=== PATIENT | female | born 1945 | race Caucasian/White ===

== ENCOUNTER 2017-09-20 09:06 | Emergency (ER) | payer MEDICAID ==
[~2017-09-20] VITALS: Wt 72.8 kg
[~2017-09-20 09:06] MED LIST: ALEN70TA30 PO; AMLO5TAB4 PO; ASPI-664 PO; CALC500T PO; CETI10CA PO
[2017-09-20] MEDS ORDERED: ACETAMINOPHEN 325 MG TAB PO ONE (10:00)
--- NOTE | 2017-09-20 10:18 | RADRPT ---
PROCEDURE: XR Chest. CLINICAL INDICATION: Cough. TECHNIQUE: Single frontal view. COMPARISON: 11/27/2014. FINDINGS: The lungs are clear. The heart size is normal. There is calcification in the aorta consistent with atherosclerosis. There is no pleural effusion. There is left lateral pleural thickening, unchanged. There is no pneumothorax. IMPRESSION: 1. Atherosclerosis. 2. Left lateral pleural thickening, unchanged. 3. Clear lungs. 4. Otherwise unremarkable chest radiograph. RPTAT: QQ .Deniz Ames MD, MD Date Time Electronically viewed and signed by .Deniz Ames MD, MD on 09/20/2017 10:18 .R/
[2017-09-20] MEDS ORDERED: AZIT250T94 PO (11:02)
[2017-09-20] MEDS ORDERED: ACET500C5 PO (11:02)
[2017-09-20] MEDS ORDERED: BENZ100C70 PO (11:02)
[2017-09-20] MEDS ORDERED: CETI10CA PO (11:02)
--- NOTE | 2017-09-20 11:05 | ERD ---
ER Documentation Chief Complaint Chief Complaint COUGH, CONGESTION HPI 72 year old female with a history of hypertension, hyperlipidemia, presents with sore throat, congestion, cough or 3-4 days. The patient reports that she has had a low-grade fever at home, taking Tylenol. The cough is been dry, no hemoptysis, chest pain or shortness of breath. Patient does state that she has had back pain with a cough that is diffuse. ROS All systems reviewed and are negative except as per history of present illness. Medications Home Meds Active Scripts Acetaminophen* (Tylophen*) 500 Mg Capsule, 1 CAP PO Q6H Y for PAIN AND OR ELEVATED TEMP, #20 CAP Prov:IVONE FERRER PA-C 09/20/17 Cetirizine Hcl* (Zyrtec*) 10 Mg Capsule, 10 MG PO DAILY, #10 TAB.CHEW Prov:IVONE FERRER PA-C 09/20/17 Benzonatate* (Tessalon Perle*) 100 Mg Capsule, 100 MG PO Q8H Y for COUGH, #30 CAP Prov:IVONE FERRER PA-C 09/20/17 Azithromycin* (Zithromax*) 250 Mg Tablet, 250 MG PO .ZPACK DIRECTED, #6 TAB TAKE 500 MG (2 TABS) THE FIRST DAY THEN 250 MG (1 TAB) DAYS 2-5 Prov:IVONE FERRER PA-C 09/20/17 Reported Medications Alendronate Sodium* (Fosamax*) 70 Mg Tablet, 70 MG PO Q7D, TAB 11/27/14 Amlodipine Besylate* (Norvasc*) 5 Mg Tablet, 5 MG PO DAILY, TAB 11/27/14 Aspirin* (Aspirin* (EC)) 81 Mg Tablet.dr, 81 MG PO DAILY, TAB 08/16/14 Calcium Carbonate (Calcium 500) 1 Tab Tablet, 1 TAB PO DAILY, TAB 08/16/14 Cetirizine Hcl* (Zyrtec*) 10 Mg Capsule, 10 MG PO DAILY, TAB 08/16/14 Allergies Allergies: Coded Allergies: Penicillins (Verified Allergy, Severe, 11/27/14) PMhx/Soc Medical and Surgical Hx: pt denies Surgical Hx History of Surgery: Yes (CYSTECTOMY L BREAST) Anesthesia Reaction: No Hx Neurological Disorder: No Hx Respiratory Disorders: Yes (htn, high cholesterol) Hx Cardiac Disorders: Yes (htn) Hx Psychiatric Problems: No Hx Miscellaneous Medical Probl: Yes (DM) Hx Alcohol Use: No Hx Substance Use: No Hx Tobacco Use: No Smoking Status: Never smoker Physical Exam Vitals Vital Signs Date Time Temp Pulse Resp B/P Pulse Ox O2 Delivery O2 Flow Rate FiO2 09/20/17 09:08 99.5 87 18 130/73 97 Physical Exam General: Well-developed, well-nourished. The patient appears in no acute distress. HEENT: Head is normocephalic, atraumatic. No scleral icterus. Pupils are equal , round, and reactive. Oral mucous membranes are moist. No pharyngeal erythema. Neck: Supple. Nontender. Lungs: Clear to auscultation. Normal air movement. Heart: Regular rate and rhythm. S1 and S2 are normal. No murmurs, gallops, or rubs. Abdomen: Soft, nontender, nondistended. Bowel sounds are normoactive. Extremities: No clubbing or cyanosis. Normal pulses. Moving extremities x 4. No weakness. Neurologic: Alert and oriented 3. No focal deficits. Skin: Normal turgor. No rash or lesions. Results 24 hrs Current Medications Medications (Trade) Dose Ordered Sig/Roland Route PRN Reason Start Time Stop Time Status Last Admin Dose Admin Acetaminophen (Tylenol Tab) 650 mg ONCE ONCE PO 09/20/17 10:00 09/20/17 10:01 DC 09/20/17 10:26 Procedures/MDM ED COURSE: EKG: Reviewed by Dr. Ye Rate/Rhythm: Normal Sinus Rhythm, with a rate of 78 with incomplete right bundle branch block QRS, ST, T-waves: No changes consistent w/ acute ischemia Impression: No evidence of ischemia or arrhythmia DIAGNOSTIC IMAGING REPORT Patient: ANISA WILDE : 1945 Age: 72 Sex: F MR #: [id number] DOS: 09/20/17 0938 Ordering MD: IVONE FERRER PA-C Location: [facility] Room/Bed: PROCEDURE: XR Chest. CLINICAL INDICATION: Cough. TECHNIQUE: Single frontal view. COMPARISON: 11/27/2014. FINDINGS: The lungs are clear. The heart size is normal. There is calcification in the aorta consistent with atherosclerosis. There is no pleural effusion. There is left lateral pleural thickening, unchanged. There is no pneumothorax. IMPRESSION: 1. Atherosclerosis. 2. Left lateral pleural thickening, unchanged. 3. Clear lungs. 4. Otherwise unremarkable chest radiograph. RPTAT: QQ .Deniz Ames MD, Date Time Electronically viewed and signed by .Deniz Ames MD, MD on 09/20/2017 10:18 .R/ CC: IVONE FERRER PA-C MEDICAL DECISION MAKING: The patient is a 72-year-old female who comes in with an acute upper respiratory infection is his acute bronchitis. Chest x-ray is normal. Patient' s pain is most consistent with musculoskeletal pain is reproduced when she coughs or takes a deep breath in or out. I doubt acute coronary syndrome, dissection, pulmonary embolus. The patient has a differential diagnosis of a viral upper respiratory infection, bacterial upper respiratory infection, bronchitis, pneumonia, pharyngitis, laryngitis, epiglottitis, croup, pneumonia. Patient has a normal pulmonary examination, clear breath sounds, normal pulse oximetry, with no corrective measures needed at this time. Fluids, rest, antipyretics were encouraged. Patient's blood pressure was elevated (>120/80) but appears stable without evidence of hypertension emergency or urgency. The patient was counseled about the risks of hypertension and urged to pursue outpatient monitoring and therapy within a week with their primary care physician. The case was reviewed and discussed with Dr. Ye who agrees with the plan of care including labs, treatment, and advanced imaging as appropriate. Departure Diagnosis: Primary Impression: Upper respiratory infection Condition: Good Patient Instructions: Bronchitis, Antiobiotic Treatment (Adult) Referrals: LISA HUNTLEY (PCP) IVONE FERRER PA-C Sep 20, 2017 11:05
== END 2017-09-20 11:45 | disposition home or self-care (01) ==
LOC: FTE 09:06
DX: J06.9 Acute upper respiratory infection, unspecified (principal); I10 Essential (primary) hypertension; E11.9 Type 2 diabetes mellitus without complications; Z79.82 Long term (current) use of aspirin
CPT/HCPCS: 71010; Z7502; Z7610

== ENCOUNTER 2017-11-19 08:01 | Emergency (ER) | END 2017-11-19 08:59 | disposition home or self-care (01) ==

== ENCOUNTER 2017-11-24 11:30 | Emergency (ER) | END 2017-11-24 13:33 | disposition home or self-care (01) ==

== ENCOUNTER 2017-12-03 10:33 | Emergency (ER) | END 2017-12-03 13:51 | disposition home or self-care (01) ==

== ENCOUNTER 2017-12-05 17:45 | Inpatient (IN) | END 2017-12-09 18:45 | disposition home or self-care (01) | DRG 195 ==

== ENCOUNTER 2017-12-13 09:00 | Emergency (ER) | END 2017-12-13 13:29 | disposition home or self-care (01) ==

== ENCOUNTER 2017-12-20 09:26 | Emergency (ER) | END 2017-12-20 12:15 | disposition home or self-care (01) ==

== ENCOUNTER 2018-01-04 09:21 | Emergency (ER) | END 2018-01-04 13:41 | disposition home or self-care (01) ==

== ENCOUNTER 2018-01-22 09:18 | Emergency (ER) | END 2018-01-22 10:10 | disposition home or self-care (01) ==

== ENCOUNTER 2018-03-04 14:14 | Emergency (ER) | END 2018-03-04 17:20 | disposition home or self-care (01) ==

== ENCOUNTER 2018-05-19 08:52 | Emergency (ER) | END 2018-05-19 11:21 | disposition home or self-care (01) ==

== ENCOUNTER 2018-11-05 07:19 | Emergency (ER) | payer MEDICAID ==
[~2018-11-05] VITALS: Wt 80.0 kg
[~2018-11-05 07:19] MED LIST changes: +ACET500C5 PO; +ALBU18HF INH; +ALBU18HF INHALATION; +ALBU8.5H8 INH; -ALEN70TA30 PO; +ALEN70TA5 PO; +AMOX1TAB10 PO; +ASPI-1046 PO; -ASPI-664 PO; +AZIT250T PO; +BENZ-6 PO; +GUAI-637 PO; +NAPR-985 PO; +PRED20TA PO; +TRAM50TA2 PO
[2018-11-05] MEDS ORDERED: ACET500C5 PO (07:46)
[2018-11-05] MEDS ORDERED: BENZ-6 PO (07:46)
--- NOTE | 2018-11-05 07:53 | ERD ---
ER Documentation Chief Complaint Chief Complaint SORE THROAT HPI 73-year-old female patient with a past medical history of hypertension presents the ED complaining of sore throat and dry cough for the last few days. Reports that she has had tactile fevers at home. States that she has sick contacts, where she lives. Denies any chest pain, shortness of breath, nausea, vomiting, diarrhea, shortness of breath. ROS All systems reviewed and are negative except as per history of present illness. Medications Home Meds Active Scripts Acetaminophen* (Tylophen*) 500 Mg Capsule, 1 CAP PO Q6H PRN for PAIN AND OR ELEVATED TEMP, #20 CAP Prov:TARAH GUSMAN-C 11/05/18 Benzonatate* (Tessalon Perle*) 100 Mg Capsule, 100 MG PO Q8H PRN for COUGH, #20 CAP Prov:TARAH GUSMAN-C 11/05/18 Naproxen* (Naprosyn*) 500 Mg Tablet, 500 MG PO BID PRN for PAIN AND/OR INFLAM MATION, #30 TAB Prov:MELANI STAFFORD PA-C 05/19/18 Tramadol HCl (Tramadol HCl) 50 Mg Tablet, 50 MG PO Q4 PRN for PAIN, #20 TAB Prov:MELANI STAFFORD PA-C 05/19/18 Acetaminophen* (Tylophen*) 500 Mg Capsule, 1 CAP PO Q6H PRN for PAIN AND OR ELEVATED TEMP, #20 CAP Prov:LOU CARRERO MD 03/04/18 Benzonatate* (Tessalon Perle*) 100 Mg Capsule, 100 MG PO Q8H PRN for COUGH for 7 Days, CAP Prov:DAVID OLIVERC 01/22/18 Albuterol Sulfate* (Proair HFA*) 8.5 Gm Hfa.aer.ad, 2 PUFF INH Q4, #1 INHALER Prov:DAVID OLIVERC 01/22/18 Albuterol Sulfate* (Ventolin HFA*) 18 Gm Hfa.aer.ad, 2 PUFF INHALATION Q6H, #1 INHALER Prov:DAVID OLIVER-C 01/04/18 Benzonatate* (Tessalon Perle*) 100 Mg Capsule, 100 MG PO Q8H PRN for COUGH for 5 Days, CAP Prov:DAVID OLIVER PA-C 01/04/18 Azithromycin* (Zithromax*) 250 Mg Tablet, 250 MG PO .KARSTEN DIRECTED, #6 TAB TAKE 500 MG (2 TABS) THE FIRST DAY THEN 250 MG (1 TAB) DAYS 2-5 Prov:DAVID OLIVER PA-C 01/04/18 Albuterol Sulfate* (Proair HFA*) 8.5 Gm Hfa.aer.ad, 2 PUFF INH Q4, #1 INHALER Prov:LOU CARRERO MD 12/20/17 Benzonatate* (Tessalon Perle*) 100 Mg Capsule, 100 MG PO Q8H PRN for COUGH, #30 CAP Prov:TAISHA TIMMONS MD 12/13/17 Prednisone* (Prednisone*) 20 Mg Tab, 60 MG PO DAILY for 4 Days, TAB Prov:TAISHA TIMMONS MD 12/13/17 Guaifenesin* (Robitussin*) 100 Mg/5 Ml Syrup, 200 MG PO Q4H PRN for COUGH, #1 BOTTLE Prov:ARLYN LUNDY S. 12/09/17 Albuterol Sulfate* (Ventolin HFA*) 18 Gm Hfa.aer.ad, 2 PUFF INH Q4H PRN for SHORTNESS OF BREATH, #1 BOTTLE Prov:DALIA LUNDYP S. 12/09/17 Amoxicillin/Potassium Clav (Amox-Clav 875-125 mg Tablet) 875-125 mg Tab, 875 MG PO BID, #4 TAB Prov:DALIA LUNDYP S. 12/09/17 Reported Medications Alendronate Sodium* (Fosamax*) 70 Mg Tablet, 70 MG PO Q7D, TAB 11/27/14 Amlodipine Besylate* (Norvasc*) 5 Mg Tablet, 5 MG PO DAILY, TAB 11/27/14 Aspirin* (Aspirin* (EC)) 81 Mg Tablet.dr, 81 MG PO DAILY, TAB 08/16/14 Calcium Carbonate (Calcium 500) 1 Tab Tablet, 1 TAB PO DAILY, TAB 08/16/14 Cetirizine Hcl* (Zyrtec*) 10 Mg Capsule, 10 MG PO DAILY, TAB 08/16/14 Allergies Allergies: Coded Allergies: Penicillins (Verified Allergy, Severe, 01/22/18) PMhx/Soc History of Surgery: Yes (Cystectomy, Left breast cyst SX) Anesthesia Reaction: No Hx Neurological Disorder: No Hx Respiratory Disorders: Yes (Bronchitis, PNA) Hx Cardiac Disorders: Yes (HTN) Hx Psychiatric Problems: No Hx Miscellaneous Medical Probl: Yes Hx Alcohol Use: No Hx Substance Use: No Hx Tobacco Use: No Smoking Status: Never smoker FmHx Family History: No diabetes, No coronary disease Physical Exam Vitals Vital Signs Date Temp Pulse Resp B/P (MAP) Pulse Ox O2 O2 Flow FiO2 Time Delivery Rate 11/05/18 78 19 143/75 98 Room Air 09:40 (97) 11/05/18 98.1 74 18 146/74 99 07:22 (98) Physical Exam Const: [id number], well-nourished. In no acute distress. Head: Atraumatic, normocephalic Eyes: Normal Conjunctiva without injection. No purulent discharge. PERRL. EOMI ENT: Normal external ear. Ear canal without erythema. Tympanic membrane pearly fischer without effusion or bulging. Nasal canal clear with normal turbinates. Moist oropharynx without tonsillar exudates. Non-erythematous pharynx. Uvula midline. No drooling. No trismus. Neck: Full range of motion. No meningismus. No cervical lymphadenopathy. Resp: Clear to auscultation bilaterally. No wheezing, rhonchi, rales, or crackles. No accessory muscle use. No retractions. Cardio: Regular rate and rhythm. No murmurs, rubs or gallops. Abd: Soft, non tender, non distended. Normal bowel sounds. No palpable masses. No rebound tenderness. No guarding. Skin: No petechiae or rashes Back: No midline tenderness. No CVA tenderness. Ext: No cyanosis, or edema. Neur: Awake and alert. Psych: Normal Mood and Affect Procedures/MDM 73-year-old female patient with no significant past medical history presents to ED complaining of sore throat, cough. Patient is afebrile and nontoxic- appearing. Patient's blood pressure is 146/74. Blood Pressure Assessment: Patient's blood pressure was elevated (>120/80) but appears stable without evidence of hypertension emergency or urgency. The patient was counseled about the risks of hypertension and urged to pursue outpatient monitoring and therapy within a week with their primary care physician. Upon discharge, patient started to complain about neck pain, headache, therefore a CT of the brain, neck was ordered to further evaluate patient. Patient reports that she is concerned about a stroke. States that she has numbness and tingling on her neck and neck pain. She is neurovascularly intact. No pre- negative drift. Muscle strength 5 out of 5 bilaterally. Patient does not have any facial droop or sided weakness or numbness and tingling. No slurred speech. Patient speaking in full sentences. Low suspicion for TIA or stroke at this time. PROCEDURE: CT Brain without contrast. IMPRESSION: 1. Moderate generalized cerebral and cerebellar volume loss. 2. 3 x 1.4 cm retrocerebellar fluid collection likely arachnoid cyst. Tiny 7 mm anterior falx lipoma. 3. No evidence of intracranial hemorrhages or midline shift. IMPRESSION: 1. Negative for fracture, malalignment or other acute process. 2. Multilevel disc degeneration, facet arthropathy and uncovertebral spurring from C2-3 through C6-7. Mild central canal stenosis at C3-4, C4-5 and C6-7. Varying degrees of foraminal narrowing as detailed above. Low suspicion for intracranial bleed, subarachnoid hemorrhage, meningitis, TIA, stroke, carotid dissection, pseudomembranous cerebri, subdural hematoma, epidura l hematoma, or other emergent conditions. This patient presents to the ED with symptoms consistent with a viral pharyngitis and nonspecified headaches. Patient's physical exam include lungs which were clear to auscultation and a normal pulse oximetry. There is a low suspicion for pneumonia, pneumothorax, mononucleosis, pulmonary embolism, epiglottitis, otitis media, otitis externa, viral/strep pharyngitis, sinusitis, myocarditis, pericarditis, endocarditis, peritonsillar abscess, mastoiditis, retropharyngeal abscess, meningitis, sepsis, acute abdomen or other emergent conditions. Fluids, rest, and symptomatic treatment are recommended for the management of patient's symptoms. Diagnosis: Sore throat, Headache Discharge medications: Tessalon Perles, Tylenol Follow up with primary care physician in 1-2 days. Instructed patient to return to the ED sooner for any worsening symptoms. Patient's questions were answered. Patient is hemodynamically stable. Patient understood and agreed with discharge plan. Patient discharged stable. Disclaimer: Inadvertent spelling and grammatical errors are likely due to EHR/dictation software use and do not reflect on the overall quality of patient care. Also, please note that the electronic time recorded on this note does not necessarily reflect the actual time of the patient encounter. Departure Diagnosis: Primary Impression: Cough Additional Impression: Headache Headache type: unspecified Headache chronicity pattern: unspecified pattern Intractability: not intractable Qualified Codes: R51 - Headache Condition: Stable Patient Instructions: Pharyngitis, Viral, Uri, Viral, No Abx (Adult) Referrals: [facility] YOU HAVE RECEIVED A MEDICAL SCREENING EXAM AND THE RESULTS INDICATE THAT YOU DO NOT HAVE A CONDITION THAT REQUIRES URGENT TREATMENT IN THE EMERGENCY DEPARTMENT. FURTHER EVALUATION AND TREATMENT OF YOUR CONDITION CAN WAIT UNTIL YOU ARE SEEN IN YOUR DOCTORS OFFICE WITHIN THE NEXT 1-2 DAYS. IT IS YOUR RESPONSIBILITY TO MAKE AN APPOINTMENT FOR FOLOW-UP CARE. IF YOU HAVE A PRIMARY DOCTOR --you should call your primary doctor and schedule an appointment IF YOU DO NOT HAVE A PRIMARY DOCTOR YOU CAN CALL OUR PHYSICIAN REFERRAL HOTLINE AT IF YOU CAN NOT AFFORD TO SEE A PHYSICIAN YOU CAN CHOSE FROM THE FOLLOWING [facility] [address] [facility]. [facility] [address] [facility]. [facility] [address] [facility] [address] [facility] [facility] [address] [facility]. [facility]. [address] [facility]. [facility] YOU HAVE RECEIVED A MEDICAL SCREENING EXAM AND THE RESULTS INDICATE THAT YOU DO NOT HAVE A CONDITION THAT REQUIRES URGENT TREATMENT IN THE EMERGENCY DEPARTMENT. FURTHER EVALUATION AND TREATMENT OF YOUR CONDITION CAN WAIT UNTIL YOU ARE SEEN IN YOUR DOCTORS OFFICE WITHIN THE NEXT 1-2 DAYS. IT IS YOUR RESPONSIBILITY TO MAKE AN APPOINTMENT FOR FOLOW-UP CARE. IF YOU HAVE A PRIMARY DOCTOR --you should call your primary doctor and schedule and appointment IF YOU DO NOT HAVE A PRIMARY DOCTOR YOU CAN CALL OUR PHYSICIAN REFERRAL HOTLINE AT . IF YOU CAN NOT AFFORD TO SEE A PHYSICIAN YOU CAN CHOSE FROM THE FOLLOWING [facility]: [facility] [address] [place] [address] [facility] [address] [place] [address] [facility] [address] [place] [address] [facility]/SPECIALTIES Additional Instructions: Llame al doctor MAANA y cinda fredis SINDY PARA DENTRO DE 2-3 HERNANDEZ.Dgale a la secretaria que nosotros le instruimos hacer esta sindy.Avise o llame si orellana condicin se empeora antes de la sindy. Regresa aqui si peor o no mejor. TARAH GUSMAN PA-C Nov 05, 2018 07:53
[2018-11-05 09:40] VITALS: BP 143/75; PULSE 78; RESP 19
== END 2018-11-05 09:41 | disposition home or self-care (01) ==
LOC: FTE 07:19
DX: J02.9 Acute pharyngitis, unspecified (principal); I10 Essential (primary) hypertension; R51 Headache; Z79.82 Long term (current) use of aspirin
CPT/HCPCS: 70450; 72125

== ENCOUNTER 2018-12-24 08:45 | Emergency (ER) | payer MEDICAID ==
[~2018-12-24] VITALS: Wt 78.0 kg
[2018-12-24] MEDS ORDERED: ALBUTEROL 0.083% (NEB) 2.5 MG/3 ML AMP HHN STA (09:13)
[2018-12-24] MEDS ORDERED: IPRATROPIUM (NEB) 0.5 MG/2.5 ML AMP HHN ONE (09:30)
[2018-12-24] MEDS ORDERED: DEXAMETHASONE 10 MG/ML 1 ML INJ IM ONE (09:30)
[2018-12-24] MEDS ORDERED: AZIT250T PO (10:36)
[2018-12-24] MEDS ORDERED: PROM6.2515 PO (10:36)
[2018-12-24] MEDS ORDERED: BENZ-6 PO (10:36)
--- NOTE | 2018-12-24 10:49 | ERD ---
ER Documentation Chief Complaint Chief Complaint COUGH X 4 DAYS HPI 73-year-old female presenting with cough times 4 days. Patient describes it as productive. She has had tactile fevers at home. Denies any use of medications. Denies pleuritic chest pain. Medical history hypertension and hypercholesterolemia. Allergy to penicillin. Surgical history is mass on left breast. Social history denies ROS All systems reviewed and are negative except as per history of present illness. Medications Home Meds Active Scripts Benzonatate* (Tessalon Perle*) 100 Mg Capsule, 100 MG PO Q8H PRN for COUGH, #30 CAP Prov:MELANI STAFFORDC 12/24/18 Promethazine Hcl* (Promethazine Hcl* Syrup) 6.25 Mg/5 Ml Syrup, 6.25 MG PO Q6H PRN for COUGH, #100 ML Prov:MELANI STAFFORD PA-C 12/24/18 Azithromycin* (Zithromax*) 250 Mg Tablet, 250 MG PO .PauPACK DIRECTED, #6 TAB TAKE 500 MG (2 TABS) THE FIRST DAY THEN 250 MG (1 TAB) DAYS 2-5 Prov:MELANI STAFFORD PA-C 12/24/18 Acetaminophen* (Tylophen*) 500 Mg Capsule, 1 CAP PO Q6H PRN for PAIN AND OR ELEVATED TEMP, #20 CAP Prov:TARAH GUSMAN PA-C 11/05/18 Benzonatate* (Tessalon Perle*) 100 Mg Capsule, 100 MG PO Q8H PRN for COUGH, #20 CAP Prov:TARAH GUSMAN PA-C 11/05/18 Naproxen* (Naprosyn*) 500 Mg Tablet, 500 MG PO BID PRN for PAIN AND/OR INFLAMMATION, #30 TAB Prov:MELANI STAFFORD PA-C 05/19/18 Tramadol HCl (Tramadol HCl) 50 Mg Tablet, 50 MG PO Q4 PRN for PAIN, #20 TAB Prov:MELANI STAFFORDC 05/19/18 Acetaminophen* (Tylophen*) 500 Mg Capsule, 1 CAP PO Q6H PRN for PAIN AND OR ELEVATED TEMP, #20 CAP Prov:LOU CARRERO MD 03/04/18 Benzonatate* (Tessalon Perle*) 100 Mg Capsule, 100 MG PO Q8H PRN for COUGH for 7 Days, CAP Prov:PRODEJUAN YOUNGWillie Espino. PA-C 01/22/18 Albuterol Sulfate* (Proair HFA*) 8.5 Gm Hfa.aer.ad, 2 PUFF INH Q4, #1 INHALER Prov:PROUSETRAVISDAVID M. PA-C 01/22/18 Albuterol Sulfate* (Ventolin HFA*) 18 Gm Hfa.aer.ad, 2 PUFF INHALATION Q6H, #1 INHALER Prov:PRODEJUAN YOUNGH SrinivasThomas PA-C 01/04/18 Benzonatate* (Tessalon Perle*) 100 Mg Capsule, 100 MG PO Q8H PRN for COUGH for 5 Days, CAP Prov:BENITODAVID. PA-C 01/04/18 Azithromycin* (Zithromax*) 250 Mg Tablet, 250 MG PO .KARSTEN DIRECTED, #6 TAB TAKE 500 MG (2 TABS) THE FIRST DAY THEN 250 MG (1 TAB) DAYS 2-5 Prov:DAVID YOUNG PA-C 01/04/18 Albuterol Sulfate* (Proair HFA*) 8.5 Gm Hfa.aer.ad, 2 PUFF INH Q4, #1 INHALER Prov:LOU CARRERO MD 12/20/17 Benzonatate* (Tessalon Perle*) 100 Mg Capsule, 100 MG PO Q8H PRN for COUGH, #30 CAP Prov:TAISHA TIMMONS MD 12/13/17 Prednisone* (Prednisone*) 20 Mg Tab, 60 MG PO DAILY for 4 Days, TAB Prov:TAISHA TIMMONS MD 12/13/17 Guaifenesin* (Robitussin*) 100 Mg/5 Ml Syrup, 200 MG PO Q4H PRN for COUGH, #1 BOTTLE Prov:ARLYN LUNDY S. 12/09/17 Albuterol Sulfate* (Ventolin HFA*) 18 Gm Hfa.aer.ad, 2 PUFF INH Q4H PRN for SHORTNESS OF BREATH, #1 BOTTLE Prov:RAKINJAL VÁSQUEZARLYN S. 12/09/17 Amoxicillin/Potassium Clav (Amox-Clav 875-125 mg Tablet) 875-125 mg Tab, 875 MG PO BID, #4 TAB Prov:ARLYN LUNDY 12/09/17 Reported Medications Alendronate Sodium* (Fosamax*) 70 Mg Tablet, 70 MG PO Q7D, TAB 11/27/14 Amlodipine Besylate* (Norvasc*) 5 Mg Tablet, 5 MG PO DAILY, TAB 11/27/14 Aspirin* (Aspirin* (EC)) 81 Mg Tablet.dr, 81 MG PO DAILY, TAB 08/16/14 Calcium Carbonate (Calcium 500) 1 Tab Tablet, 1 TAB PO DAILY, TAB 08/16/14 Cetirizine Hcl* (Zyrtec*) 10 Mg Capsule, 10 MG PO DAILY, TAB 08/16/14 Allergies Allergies: Coded Allergies: Penicillins (Verified Allergy, Severe, 01/22/18) PMhx/Soc History of Surgery: Yes (Cystectomy, Left breast cyst SX) Anesthesia Reaction: No Hx Neurological Disorder: No Hx Respiratory Disorders: Yes (Bronchitis, PNA) Hx Cardiac Disorders: Yes (HTN) Hx Psychiatric Problems: No Hx Miscellaneous Medical Probl: Yes Hx Alcohol Use: No Hx Substance Use: No Hx Tobacco Use: No Smoking Status: Never smoker FmHx Family History: No diabetes, No coronary disease, No other Physical Exam Vitals Vital Signs Date Temp Pulse Resp B/P (MAP) Pulse Ox O2 O2 Flow FiO2 Time Delivery Rate 12/24/18 81 18 96 21 09:32 12/24/18 98.1 67 18 147/67 99 08:47 (93) Physical Exam GENERAL: The patient is well-appearing, well-nourished, in no acute distress HEENT: Atraumatic. Conjunctivae are pink. Pupils equal, round, and reactive to light. There is no scleral icterus. Tympanic membranes clear bilaterally. Oropharynx clear. NECK: C-spine is soft and supple. There is no meningismus. There is no cervical lymphadenopathy. CHEST: Clear to auscultation bilaterally. There are no rales, wheezes or rhonchi. HEART: Regular rate and rhythm. No murmurs, clicks, rubs or gallops. Results 24 hrs Current Medications Medications Dose Sig/Roland Start Time Status Last (Trade) Ordered Route PRN Stop Time Admin Dose Reason Admin Albuterol 5 mg ONCE STAT 12/24/18 DC 12/24/18 (Proventil HHN 09:13 09:30 0.083% (Neb)) 12/24/18 09:15 Ipratropium 0.5 mg ONCE ONCE 12/24/18 DC 12/24/18 [place] HHN 09:30 09:30 (Atrovent 12/24/18 09:31 0.02% (Neb)) 10 mg ONCE ONCE 12/24/18 DC 12/24/18 Dexamethasone IM 09:30 09:48 (Decadron) 12/24/18 09:31 Procedures/MDM DIAGNOSTIC IMAGING REPORT Patient: ANISA WILDE : 1945 Age: 73 Sex: F MR #: [id number] DOS: 12/24/18912 Ordering MD: LISA STAFFORD PA-C Location: [facility] Room/Bed: PROCEDURE: XR Chest. CLINICAL INDICATION: Cough TECHNIQUE: Single frontal view of the chest was obtained COMPARISON: 01/04/2018 FINDINGS: The heart is enlarged. The thoracic aorta is calcified. There are mild bibasilar linear atelectatic changes. There is no pleural effusion or pneumothorax. RPTAT: AA IMPRESSION: Mild cardiomegaly. Calcified aorta consistent with atherosclerotic disease. Mild bibasilar linear atelectatic changes. MDM: 73 yr old female complaining of cough. I have low suspicion for pneumonia. I have low suspicion for respiratory distress or hypoxia. Patient is discharged stricter precautions and told to follow-up with primary care within 1-2 days for close evaluation. Given the patient's age and productive cough history I will treat prophylactically with antibiotics. All questions answered at discharge Departure Diagnosis: Primary Impression: Cough Condition: Stable Patient Instructions: Cough, Chronic, Uncertain Cause, (Adult) Referrals: [facility] YOU HAVE RECEIVED A MEDICAL SCREENING EXAM AND THE RESULTS INDICATE THAT YOU DO NOT HAVE A CONDITION THAT REQUIRES URGENT TREATMENT IN THE EMERGENCY DEPARTMENT. FURTHER EVALUATION AND TREATMENT OF YOUR CONDITION CAN WAIT UNTIL YOU ARE SEEN IN YOUR DOCTORS OFFICE WITHIN THE NEXT 1-2 DAYS. IT IS YOUR RESPONSIBILITY TO MAKE AN APPOINTMENT FOR FOLOW-UP CARE. IF YOU HAVE A PRIMARY DOCTOR --you should call your primary doctor and schedule an appointment IF YOU DO NOT HAVE A PRIMARY DOCTOR YOU CAN CALL OUR PHYSICIAN REFERRAL HOTLINE AT IF YOU CAN NOT AFFORD TO SEE A PHYSICIAN YOU CAN CHOSE FROM THE FOLLOWING [facility] [address] [facility] [address] [facility] [address] [facility] [address] [facility] [address] [facility]. [facility]. [address] Additional Instructions: FOLLOW UP WITH YOUR PRIMARY CARE PHYSICIAN TOMORROW.Return to this facility if you are not improving as expected. MELANI STAFFORD PA-C Dec 24, 2018 10:49
[2018-12-24 11:03] VITALS: BP 136/84; PULSE 59; RESP 24
== END 2018-12-24 11:21 | disposition home or self-care (01) ==
LOC: FTE 08:45
DX: R05 Cough (principal); I10 Essential (primary) hypertension; F17.210 Nicotine dependence, cigarettes, uncomplicated; Z79.82 Long term (current) use of aspirin
CPT/HCPCS: 71045; 94664; 96372; J1100; Z7502; Z7610

== ENCOUNTER 2019-01-01 10:45 | Emergency (ER) | payer MEDICAID ==
[~2019-01-01] VITALS: Ht 152.4 cm; Wt 72.5 kg
[~2019-01-01 10:45] MED LIST changes: +PROM6.2515 PO
[2019-01-01 11:00] VITALS: BP 132/62; PULSE 64; RESP 20; Ht 152.4 cm; Wt 72.5 kg
[2019-01-01] MEDS ORDERED: ALBUTEROL 0.083% (NEB) 2.5 MG/3 ML AMP HHN STA (13:40)
[2019-01-01] MEDS ORDERED: DEXAMETHASONE 4 MG TAB PO ONE (14:00)
[2019-01-01] MEDS ORDERED: PRED20TA PO (14:04)
[2019-01-01] MEDS ORDERED: ALBU18HF INHALATION (14:04)
[2019-01-01] MEDS ORDERED: D-ME473S2 PO (14:06)
--- NOTE | 2019-01-01 14:08 | ERD ---
ER Documentation Chief Complaint Chief Complaint cough x 1 week, hx of bronchitis HPI 73-year-old female presents with cough for last week. She took Zithromax and promethazine but has persistent cough. She may have mild wheeze. She denies sustained chest pain, abdominal pain, vomiting, fevers. She denies significant productive mucus. She is requesting a breathing treatment. ROS All systems reviewed and are negative except as per history of present illness. Medications Home Meds Active Scripts Dextromethorphan Hb-Promethazine Hcl* (Promethazine DM* Syrup) 473 Ml Syrup, 5 ML PO Q6 PRN for COUGH for 5 Days, ML Prov:LOU CARRERO MD 01/01/19 Albuterol Sulfate* (Ventolin HFA*) 18 Gm Hfa.aer.ad, 2 PUFF INHALATION Q4H, #1 INHALER Prov:LOU CARRERO MD 01/01/19 Prednisone* (Prednisone*) 20 Mg Tab, 40 MG PO DAILY for 4 Days, TAB Start January 02, 2019 Prov:LOU CARRERO MD 01/01/19 Benzonatate* (Tessalon Perle*) 100 Mg Capsule, 100 MG PO Q8H PRN for COUGH, #30 CAP Prov:MELANI STAFFORD PA-C 12/24/18 Promethazine Hcl* (Promethazine Hcl* Syrup) 6.25 Mg/5 Ml Syrup, 6.25 MG PO Q6H PRN for COUGH, #100 ML Prov:MELANI STAFFORD PA-C 12/24/18 Azithromycin* (Zithromax*) 250 Mg Tablet, 250 MG PO .ZPACK DIRECTED, #6 TAB TAKE 500 MG (2 TABS) THE FIRST DAY THEN 250 MG (1 TAB) DAYS 2-5 Prov:MELANI STAFFORD PA-C 12/24/18 Acetaminophen* (Tylophen*) 500 Mg Capsule, 1 CAP PO Q6H PRN for PAIN AND OR ELEVATED TEMP, #20 CAP Prov:TARAH GUSMAN PA-C 11/05/18 Benzonatate* (Tessalon Perle*) 100 Mg Capsule, 100 MG PO Q8H PRN for COUGH, #20 CAP Prov:TARAH GUSMAN PA-C 11/05/18 Naproxen* (Naprosyn*) 500 Mg Tablet, 500 MG PO BID PRN for PAIN AND/OR INFLAMMATION, #30 TAB Prov:MELANI STAFFORD PA-C 05/19/18 Tramadol HCl (Tramadol HCl) 50 Mg Tablet, 50 MG PO Q4 PRN for PAIN, #20 TAB Prov:MELANI STAFFORD PA-C 05/19/18 Acetaminophen* (Tylophen*) 500 Mg Capsule, 1 CAP PO Q6H PRN for PAIN AND OR ELEVATED TEMP, #20 CAP Prov:LOU CARRERO MD 03/04/18 Benzonatate* (Tessalon Perle*) 100 Mg Capsule, 100 MG PO Q8H PRN for COUGH for 7 Days, CAP Prov:DAVID OLIVER-C 01/22/18 Albuterol Sulfate* (Proair HFA*) 8.5 Gm Hfa.aer.ad, 2 PUFF INH Q4, #1 INHALER Prov:DAVID OLIVER-C 01/22/18 Albuterol Sulfate* (Ventolin HFA*) 18 Gm Hfa.aer.ad, 2 PUFF INHALATION Q6H, #1 INHALER Prov:DAVID OLIVER-C 01/04/18 Benzonatate* (Tessalon Perle*) 100 Mg Capsule, 100 MG PO Q8H PRN for COUGH for 5 Days, CAP Prov:DAVID OLIVER-C 01/04/18 Azithromycin* (Zithromax*) 250 Mg Tablet, 250 MG PO .KARSTEN DIRECTED, #6 TAB TAKE 500 MG (2 TABS) THE FIRST DAY THEN 250 MG (1 TAB) DAYS 2-5 Prov:DAVID OLIVER-C 01/04/18 Albuterol Sulfate* (Proair HFA*) 8.5 Gm Hfa.aer.ad, 2 PUFF INH Q4, #1 INHALER Prov:LOU CARRERO MD 12/20/17 Benzonatate* (Tessalon Perle*) 100 Mg Capsule, 100 MG PO Q8H PRN for COUGH, #30 CAP Prov:TAISHA TIMMONS MD 12/13/17 Prednisone* (Prednisone*) 20 Mg Tab, 60 MG PO DAILY for 4 Days, TAB Prov:TAISHA TIMMONS MD 12/13/17 Guaifenesin* (Robitussin*) 100 Mg/5 Ml Syrup, 200 MG PO Q4H PRN for COUGH, #1 BOTTLE Prov:ARLYN LUNDY S. 12/09/17 Albuterol Sulfate* (Ventolin HFA*) 18 Gm Hfa.aer.ad, 2 PUFF INH Q4H PRN for SHORTNESS OF BREATH, #1 BOTTLE Prov:ARLYN LUNDY S. 12/09/17 Amoxicillin/Potassium Clav (Amox-Clav 875-125 mg Tablet) 875-125 mg Tab, 875 MG PO BID, #4 TAB Prov:ARLYN LUNDY S. 12/09/17 Reported Medications Alendronate Sodium* (Fosamax*) 70 Mg Tablet, 70 MG PO Q7D, TAB 11/27/14 Amlodipine Besylate* (Norvasc*) 5 Mg Tablet, 5 MG PO DAILY, TAB 11/27/14 Aspirin* (Aspirin* (EC)) 81 Mg Tablet.dr, 81 MG PO DAILY, TAB 08/16/14 Calcium Carbonate (Calcium 500) 1 Tab Tablet, 1 TAB PO DAILY, TAB 08/16/14 Cetirizine Hcl* (Zyrtec*) 10 Mg Capsule, 10 MG PO DAILY, TAB 08/16/14 Allergies Allergies: Coded Allergies: Penicillins (Verified Allergy, Severe, 01/22/18) PMhx/Soc History of Surgery: Yes (Cystectomy, Left breast cyst SX) Anesthesia Reaction: No Hx Neurological Disorder: No Hx Respiratory Disorders: Yes (Bronchitis, PNA) Hx Cardiac Disorders: Yes (HTN) Hx Psychiatric Problems: No Hx Miscellaneous Medical Probl: Yes Hx Alcohol Use: No Hx Substance Use: No Hx Tobacco Use: No Smoking Status: Never smoker FmHx Family History: No diabetes, No coronary disease, No other Physical Exam Vitals Vital Signs Date Temp Pulse Resp B/P (MAP) Pulse Ox O2 O2 Flow FiO2 Time Delivery Rate 01/01/19 80 19 96 21 13:59 01/01/19 98.8 64 20 132/62 97 11:00 (85) Physical Exam Const: No acute distress Head: Atraumatic Eyes: Normal Conjunctiva ENT: Normal External Ears, Nose and Mouth. TMs and oropharynx normal. Neck: Full range of motion. No meningismus. Resp: Clear to auscultation bilaterally. Mild forced wheeze with minimal wheeze at rest without rales or retractions. Cardio: Regular rate and rhythm, no murmurs Abd: Soft, non tender, non distended. Normal bowel sounds Skin: No petechiae or rashes Back: No midline or flank tenderness Ext: No cyanosis, or edema Neur: Awake and alert Psych: Normal Mood and Affect Results 24 hrs Current Medications Medications Dose Sig/Roland Start Time Status Last (Trade) Ordered Route PRN Stop Time Admin Dose Reason Admin 12 mg ONCE ONCE 01/01/19 DC Dexamethasone PO 14:00 01/01/19 (Decadron) 14:01 Albuterol 5 mg ONCE STAT 01/01/19 DC 01/01/19 (Proventil HHN 13:40 01/01/19 13:59 0.083% (Neb)) 13:43 Procedures/MDM 73-year-old female presents with coughing and mild wheezing for last week. She is never been treated with Zithromax. She has no signs of pneumonia, hypoxemia, respiratory distress. We will treat with Ventolin, promethazine DM, short course prednisone, primary care follow-up and return precautions. She has no signs or symptoms suggest significant abdominal pain, no signs of cardiac chest pain is well-appearing and pleasant. The patient was stable with no new complaints during the ER course. Clinically, there is no current evidence to suggest meningitis, sepsis, acute abdomen, pneumonia, stroke, acute coronary syndrome, pulmonary embolism, aortic dissection or any other emergent condition appearing to require further evaluation or hospitalization. Patient counseled regarding my diagnostic impression and care plan. Prior to discharge all questions answered. Pt agrees with treatment plan and understands strict return precautions. Pt is instructed to follow up with primary care provider within 24- 48 hours. Precautionary instructions provided including instructions to return to the ER if not improving or for any worsening or changing symptoms or concerns. Departure Diagnosis: Primary Impression: Cough Condition: Stable Patient Instructions: Uri, Viral, No Abx (Adult) Additional Instructions: Probablamente un virus que dura 2-4 erwin. cheque otro vez en el proximo butch para mas simptomas- vomito, dolor, bakari, problemas con respirando, o con orellana doctor primario. LOU CARRERO MD Jan 01, 2019 14:08
== END 2019-01-01 14:48 | disposition home or self-care (01) ==
LOC: FTE 10:45
DX: R05 Cough (principal); I10 Essential (primary) hypertension; Z79.82 Long term (current) use of aspirin
CPT/HCPCS: 94664; Z7502; Z7610

== ENCOUNTER 2019-04-02 10:00 | Emergency (ER) | payer MEDICAID ==
[~2019-04-02] VITALS: Wt 78.0 kg
[~2019-04-02 10:00] MED LIST changes: +D-ME473S2 PO
[2019-04-02] MEDS ORDERED: AMLO5TAB4 PO (10:18)
--- NOTE | 2019-04-02 10:29 | ERD ---
ER Documentation Chief Complaint Chief Complaint REFILL OF NORVASC 5 MG, TAKES 1 DAILY HPI 73-year-old female who presents to the emergency room asking for medication refill. She states that she would like a refill of her Norvasc 5 mg. Patient states that her primary care doctor wanted to change her medication but she does not agree. She would like a refill of this medication. She denies any fevers chills chest pain or shortness of breath. Translation services were utilized during this patient's encounter Language: Chinese Source: In person ROS All systems reviewed and are negative except as per history of present illness. Medications Home Meds Active Scripts Amlodipine Besylate* (Norvasc*) 5 Mg Tablet, 5 MG PO DAILY for 30 Days, TAB Prov:JUN BUCHANAN MD 04/02/19 Dextromethorphan Hb-Promethazine Hcl* (Promethazine DM* Syrup) 473 Ml Syrup, 5 ML PO Q6 PRN for COUGH for 5 Days, ML Prov:LOU CARRERO MD 01/01/19 Albuterol Sulfate* (Ventolin HFA*) 18 Gm Hfa.aer.ad, 2 PUFF INHALATION Q4H, #1 INHALER Prov:LOU CARRERO MD 01/01/19 Prednisone* (Prednisone*) 20 Mg Tab, 40 MG PO DAILY for 4 Days, TAB Start January 02, 2019 Prov:LOU CARRERO MD 01/01/19 Benzonatate* (Tessalon Perle*) 100 Mg Capsule, 100 MG PO Q8H PRN for COUGH, #30 CAP Prov:MELANI STAFFORD PA-C 12/24/18 Promethazine Hcl* (Promethazine Hcl* Syrup) 6.25 Mg/5 Ml Syrup, 6.25 MG PO Q6H PRN for COUGH, #100 ML Prov:MELANI STAFFORD PA-C 12/24/18 Azithromycin* (Zithromax*) 250 Mg Tablet, 250 MG PO .ZPACK DIRECTED, #6 TAB TAKE 500 MG (2 TABS) THE FIRST DAY THEN 250 MG (1 TAB) DAYS 2-5 Prov:MELANI STAFFORD PA-C 12/24/18 Acetaminophen* (Tylophen*) 500 Mg Capsule, 1 CAP PO Q6H PRN for PAIN AND OR ELEVATED TEMP, #20 CAP Prov:TARAH GUSMAN-C 11/05/18 Benzonatate* (Tessalon Perle*) 100 Mg Capsule, 100 MG PO Q8H PRN for COUGH, #20 CAP Prov:TARAH GUSMAN-C 11/05/18 Naproxen* (Naprosyn*) 500 Mg Tablet, 500 MG PO BID PRN for PAIN AND/OR INFLAMMATION, #30 TAB Prov:MELANI STAFFORD-C 05/19/18 Tramadol HCl (Tramadol HCl) 50 Mg Tablet, 50 MG PO Q4 PRN for PAIN, #20 TAB Prov:MELANI STAFFORDC 05/19/18 Acetaminophen* (Tylophen*) 500 Mg Capsule, 1 CAP PO Q6H PRN for PAIN AND OR ELEVATED TEMP, #20 CAP Prov:LOU CARRERO MD 03/04/18 Benzonatate* (Tessalon Perle*) 100 Mg Capsule, 100 MG PO Q8H PRN for COUGH for 7 Days, CAP Prov:DAVID OLIVER-C 01/22/18 Albuterol Sulfate* (Proair HFA*) 8.5 Gm Hfa.aer.ad, 2 PUFF INH Q4, #1 INHALER Prov:DAVID OLIVER-C 01/22/18 Albuterol Sulfate* (Ventolin HFA*) 18 Gm Hfa.aer.ad, 2 PUFF INHALATION Q6H, #1 INHALER Prov:DAVID OLIVER-C 01/04/18 Benzonatate* (Tessalon Perle*) 100 Mg Capsule, 100 MG PO Q8H PRN for COUGH for 5 Days, CAP Prov:DAVID OLIVER PA-C 01/04/18 Azithromycin* (Zithromax*) 250 Mg Tablet, 250 MG PO .KARSTEN DIRECTED, #6 TAB TAKE 500 MG (2 TABS) THE FIRST DAY THEN 250 MG (1 TAB) DAYS 2-5 Prov:DAVID OLIVER PA-C 01/04/18 Albuterol Sulfate* (Proair HFA*) 8.5 Gm Hfa.aer.ad, 2 PUFF INH Q4, #1 INHALER Prov:LOU CARRERO MD 12/20/17 Benzonatate* (Tessalon Perle*) 100 Mg Capsule, 100 MG PO Q8H PRN for COUGH, #30 CAP Prov:TAISHA TIMMONS MD 12/13/17 Prednisone* (Prednisone*) 20 Mg Tab, 60 MG PO DAILY for 4 Days, TAB Prov:TAISHA TIMMONS MD 12/13/17 Guaifenesin* (Robitussin*) 100 Mg/5 Ml Syrup, 200 MG PO Q4H PRN for COUGH, #1 BOTTLE Prov:RAHIARLYN S. 12/09/17 Albuterol Sulfate* (Ventolin HFA*) 18 Gm Hfa.aer.ad, 2 PUFF INH Q4H PRN for SHORTNESS OF BREATH, #1 BOTTLE Prov:RAHI,ARLYN S. 12/09/17 Amoxicillin/Potassium Clav (Amox-Clav 875-125 mg Tablet) 875-125 mg Tab, 875 MG PO BID, #4 TAB Prov:RAHI,ARLYN S. 12/09/17 Reported Medications Alendronate Sodium* (Fosamax*) 70 Mg Tablet, 70 MG PO Q7D, TAB 11/27/14 Amlodipine Besylate* (Norvasc*) 5 Mg Tablet, 5 MG PO DAILY, TAB 11/27/14 Aspirin* (Aspirin* (EC)) 81 Mg Tablet.dr, 81 MG PO DAILY, TAB 08/16/14 Calcium Carbonate (Calcium 500) 1 Tab Tablet, 1 TAB PO DAILY, TAB 08/16/14 Cetirizine Hcl* (Zyrtec*) 10 Mg Capsule, 10 MG PO DAILY, TAB 08/16/14 Allergies Allergies: Coded Allergies: Penicillins (Verified Allergy, Severe, 01/01/19) PMhx/Soc History of Surgery: Yes (Cystectomy, Left breast cyst SX) Anesthesia Reaction: No Hx Neurological Disorder: No Hx Respiratory Disorders: Yes (Bronchitis, PNA) Hx Cardiac Disorders: Yes (HTN) Hx Psychiatric Problems: No Hx Miscellaneous Medical Probl: Yes Hx Alcohol Use: No Hx Substance Use: No Hx Tobacco Use: No FmHx Family History: No diabetes Physical Exam Vitals Vital Signs Date Temp Pulse Resp B/P (MAP) Pulse Ox O2 O2 Flow FiO2 Time Delivery Rate 04/02/19 98.1 81 18 160/81 99 10:06 (107) Physical Exam General: Well developed, well nourished, no acute distress Head: Normocephalic, atraumatic. Eyes: EOM intact ENT: Moist mucous membranes Neck: Full ROM Respiratory: No respiratory distress Cardiovascular: Well perfused distally Abdominal: Nondistended : Deferred MSK: No edema, no unilateral swelling, 5/5 strength Neurologic: Alert and oriented, moving all extremities, normal speech, steady gait Skin: No rash Psych: Normal mood Procedures/MDM Patient is here for medication refill. The patient is a form that she needs to have this conversation with her primary care physician. We are not routinely prescribe these medications and altering a plan of her primary care physician. I will refill her medication because it is better that she is taking some blood pressure medication rather than none. Patient was advised of strict and prompt primary care follow-up. The patient does not have an identifiable emergent medical condition that warrants inpatient hospitalization at this time. The patient is deemed safe for discharge with outpatient follow-up. We discussed follow up with the patient's primary care doctor within 24 to 48 hours as needed. We also discussed return to the emergency room for worsening symptoms or worsening condition. Outpatient referral: none Discharge Medications: Norvasc 5 daily for 30 days Departure Diagnosis: Primary Impression: Encounter for medication refill Condition: Stable Patient Instructions: Taking Medicine Safely Referrals: [facility] YOU HAVE RECEIVED A MEDICAL SCREENING EXAM AND THE RESULTS INDICATE THAT YOU DO NOT HAVE A CONDITION THAT REQUIRES URGENT TREATMENT IN THE EMERGENCY DEPARTMENT. FURTHER EVALUATION AND TREATMENT OF YOUR CONDITION CAN WAIT UNTIL YOU ARE SEEN IN YOUR DOCTORS OFFICE WITHIN THE NEXT 1-2 DAYS. IT IS YOUR RESPONSIBILITY TO MAKE AN APPOINTMENT FOR FOLOW-UP CARE. IF YOU HAVE A PRIMARY DOCTOR --you should call your primary doctor and schedule an appointment IF YOU DO NOT HAVE A PRIMARY DOCTOR YOU CAN CALL OUR PHYSICIAN REFERRAL HOTLINE AT IF YOU CAN NOT AFFORD TO SEE A PHYSICIAN YOU CAN CHOSE FROM THE FOLLOWING [facility] [address] [facility]. [facility] [place] [address] [facility] [address] [facility] [address] [facility]. [facility] [address] [facility]. [facility] [address] [facility]. [facility]. [address] [facility]. [facility] YOU HAVE RECEIVED A MEDICAL SCREENING EXAM AND THE RESULTS INDICATE THAT YOU DO NOT HAVE A CONDITION THAT REQUIRES URGENT TREATMENT IN THE EMERGENCY DEPARTMENT. FURTHER EVALUATION AND TREATMENT OF YOUR CONDITION CAN WAIT UNTIL YOU ARE SEEN IN YOUR DOCTORS OFFICE WITHIN THE NEXT 1-2 DAYS. IT IS YOUR RESPONSIBILITY TO MAKE AN APPOINTMENT FOR FOLOW-UP CARE. IF YOU HAVE A PRIMARY DOCTOR --you should call your primary doctor and schedule and appointment IF YOU DO NOT HAVE A PRIMARY DOCTOR YOU CAN CALL OUR PHYSICIAN REFERRAL HOTLINE AT . IF YOU CAN NOT AFFORD TO SEE A PHYSICIAN YOU CAN CHOSE FROM THE FOLLOWING [facility] INSTITUTIONS: [facility] [address] [place] [address] [facility] [address], [place] [id number] [place] [address] + [facility] [address] [place] [address] Additional Instructions: Llame al doctor nombrado radha (Referral Sources) MAANA y cinda fredis SINDY PARA DENTRO DE FREDIS SEMANA. Dgale a la secretaria que nosotros le instruimos hacer esta sindy.Avise o llame si orellana condicin se empeora antes de la sindy. JUN BUCHANAN MD Apr 02, 2019 10:29
[2019-04-02 11:02] VITALS: BP 158/88; PULSE 88; RESP 18
== END 2019-04-02 11:35 | disposition home or self-care (01) ==
LOC: E/R 10:00
DX: Z76.0 Encounter for issue of repeat prescription (principal); I10 Essential (primary) hypertension; Z79.82 Long term (current) use of aspirin
CPT/HCPCS: 99283